=== PATIENT | male | born 1985 | race African-American/Black ===

== ENCOUNTER 2024-11-29 09:00 | Emergency (ER) | payer BC ==
[~2024-11-29] VITALS: Ht 180.3 cm; Wt 67.5 kg
--- NOTE | 2024-11-29 09:46 | ED.PDOC ---
GI ASSESSMENT HPI Comments 39 y/o M, presents to the ED for CC of GI bleed. Patient states, that he went to the restroom to have a bowel movement this morning (11/28/24) when he noticed clots in his stool. Patient relays, that he does tend to strain himself when having a bowel movement. Patient comments on, symptoms of itchiness near his rectum. Patient denies melena, fever, abdominal pain, or N/V/D. No other symptoms or modifying factors at this time. Chief Complaint: GI Bleed Time Seen by MD: 09:45 Reviewed Notes: Nurses Notes, Medications, Allergies Allergies: Coded Allergies: NO KNOWN ALLERGIES (Unverified , 11/29/24) Information Source: Patient Mode of Arrival: Ambulatory Timing: Days Duration: Since onset Prehospital treatment: None Quality: None Vomitus: None Stool: Blood Streaked Severity: None Recent: None Recent Hx of: None Pain Location: None Modifying Factors: Nothing Associated sign and symptoms: None Past Medical History PAST MEDICAL HISTORY: Denies Surgical History: Denies all surgeries Family History Family History: Unknown Social History Smoker: Non-Smoker Alcohol: Denies ETOH Use Drugs: Denies Drug Use Lives In: Home Constitutional: denies: chills, diaphoresis, fatigue, fever, malaise, sweats, weakness, others EENTM: denies: blurred vision, double vision, ear bleeding, ear discharge, ear drainage, ear pain, ear ringing, eye pain, eye redness, hearing loss, mouth pain, mouth swelling, nasal discharge, nose bleeding, nose congestion, nose pain, photophobia, tearing, throat pain, throat swelling, voice changes, others Respiratory: denies: cough, hemoptysis, orthopnea, SOB at rest, shortness of breath, SOB with excertion, stridor, wheezing, others Cardiovascular: denies: chest pain, dizzy spells, diaphoresis, Dyspnea on exertion, edema, irregular heart beat, left arm pain, lightheadedness, palpitations, PND, syncope, others Gastrointestinal: reports: blood streaked bowels; denies: abdomen distended, ab dominal pain, constipated, diarrhea, dysphagia, difficulty swallowing, hematemesis, melena, nausea, poor appetite, poor fluid intake, rectal bleeding, rectal pain, vomiting, others Genitourinary: denies: burning, dysuria, flank pain, frequency, hematuria, incontinence, penile discharge, penile sore, pain, testicle pain, testicle swelling, urgency, others Neurological: denies: dizziness, fainting, headache, left sided numbness, left sided weakness, numbness, paresthesia, pre-existing deficit, right sided numbness, right sided weakness, seizure, speech problems, tingling, tremors, weakness, others Musculoskeletal: denies: back pain, gout, joint pain, joint swelling, muscle pain, muscle stiffness, neck pain, others Integumetry: denies: bruises, change in color, change in hair/nails, dryness, laceration, lesions, lumps, rash, wounds, others Allergic/Immunocompromised: denies: Difficulty Healing, Frequent Infections, Hives, Itching, others Hematologic/Lymphatic: denies: anemia, blood clots, easy bleeding, easy bruising, swollen glands, others Endocrine: denies: excessive hunger, excessive sweating, excessive thirst, excessive urination, flushing, intolerance to cold, intolerance to heat, unexplained weight gain, unexplained weight loss, others Psychiatric: denies: anxiety, bipolar disorder, depression, hopeless, panic disorder, schizophrenia, sleepless, suicidal, others All Other Systems: Reviewed and Negative Physical Exam General Appearance: No Apparent Distress, Normal HEENT: Normal ENT Inspection, Pharynx Normal, TMs Normal, Tonsillar Exudate Neck: Full Range of Motion, Non-Tender, Normal, Normal Inspection Respiratory: Chest Non-Tender, Lungs Clear, No Accessory Muscle Use, No Respiratory Distress, Normal Breath Sounds Cardiovascular: No Edema, No JVD, No Murmur, No Gallop, Normal Peripheral Pulses, Regular Rate/Rhythm Breast Exam: Deferred Gastrointestinal: No Organomegaly, Non Tender, No Pulsatile Mass, Normal Bowel Sounds, Soft Genitalia: Deferred Pelvic: Deferred Rectal: Deferred Extremities: Normal range of motion, Non-tender Musculoskeletal : Apperance: Normal Neurologic: Alert, Normal Mood, No Sensory Deficits Cerebellar Function: NOT DONE Reflexes: NOT DONE Skin: Normal Color, Warm Lymphatic: No Adenopathy Was a procedure done? Was a procedure done?: No GI differential Dx Differential Diagnosis: Bowel Obstruction, Constipation, Gastritis/PUD, Gastroenteritis, GI hemorrhage X-Ray, Labs, Meds, VS Comment This 39-year-old male presents secondary to a history of noting small amount of bright red blood on his toilet paper. He endorses being constantly having to push. He had also endorses having itchiness to the perirectal area. It appears the patient has a history of constipation. We had discussions seen that we may be some time before we can get the patient was a private room where can do a appropriate rectal exam. The patient stated that he would follow up with his PCP for rectal other follow up. He was informed that he should request and endoscopy and colonoscopy to rule out cancer or other cause. The patient declined workup at this time. As such, he was discharged with the expectation he will follow up with his PCP or return to the ER for any new/worrisome of the worsening symptoms. Patient he is in agreement with this plan. He will be discharged home with a laxative and fiber supplements. Time of 1ST Reevaluation: 10:25 Reevaluation 1ST: Unchanged Patient Education/Counseling: Diagnosis, Treatment Family Education/Counseling: Diagnosis, Treatment Departure 1 Departure Time of Disposition: 09:50 Impression: Primary Impression: Abdominal pain Additional Impressions: Constipation Rectal bleeding Rectal itching Disposition: 01 HOME / SELF CARE / HOMELESS Condition: Good Discharged With: Self, Spouse Critical Care Note Critical Care Time?: No Stability Stability form required: No Heart Score Heart Score: Heart Score Response (Comments) Value History N/A 0 EKG N/A 0 Age N/A 0 Risk Factors N/A 0 Troponin N/A 0 Total 0 I personally scribed for JUAREZ MORENO MD ([email or web address]) on 11/29/24 at 09:46. Electronically submitted by Jacquelyn Pizano ([email or web address]). JUAREZ MORENO MD Nov 29, 2024 09:46
[2024-11-29] MEDS ORDERED: FIBE1CHW3 PO (09:55)
[2024-11-29] MEDS ORDERED: MAGNSUS48 PO (09:56)
[2024-11-29 09:58] VITALS: BP 116/69; PULSE 56; RESP 20; TEMP 97.5; O2SAT 97
== END 2024-11-29 10:02 | disposition home or self-care (01) ==
LOC: ER 09:00
DX: K59.00 Constipation, unspecified (principal); K62.5 Hemorrhage of anus and rectum; L29.9 Pruritus, unspecified; R10.9 Unspecified abdominal pain